=== PATIENT | male | born 1935 | race Caucasian/White ===

== ENCOUNTER 2020-02-21 17:50 | Emergency (ER) | payer OTHER ==
[~2020-02-21] VITALS: Ht 170.2 cm; Wt 83.2 kg
[~2020-02-21 17:50] MED LIST: LIDOcaine 1% W/epiNEPHrine 1:200,000 10ml vial ONE
[2020-02-21] MEDS ORDERED: LIDOcaine 1% W/epiNEPHrine 1:200,000 10ml vial IJ ONE (20:15)
[2020-02-21] MEDS ORDERED: LIDOcaine 1% w/epiNEPHrine 1:200,000 30ml vial IJ ONE (20:20)
[2020-02-21] MEDS ORDERED: TETanus/Pertussis (Acell)/Diphther VAC/PF (Tdap-Adult) 0.5ml syringe IMVAC ONE (20:45)
[2020-02-21 21:12] VITALS: BP 168/95
== END 2020-02-21 21:13 | disposition home or self-care (01) ==
LOC: ER 17:50
DX: S01.111A Laceration without foreign body of right eyelid and periocular area, initial encounter (principal); S60.511A Abrasion of right hand, initial encounter; W01.0XXA Fall on same level from slipping, tripping and stumbling without subsequent striking against object, initial encounter; Y93.89 Activity, other specified; Y92.89 Other specified places as the place of occurrence of the external cause; Y99.8 Other external cause status
CPT/HCPCS: 12013; 70450; 71250; 72125; 90471; 90715; 99285

== ENCOUNTER 2020-02-27 06:26 | Emergency (ER) | payer SELFPAY ==
[~2020-02-27] VITALS: Ht 170.2 cm; Wt 83.2 kg
[2020-02-27 06:30] VITALS: BP 158/63
== END 2020-02-27 07:13 | disposition home or self-care (01) ==
LOC: ER 06:26
DX: S01.81XD Laceration without foreign body of other part of head, subsequent encounter (principal); X58.XXXD Exposure to other specified factors, subsequent encounter
CPT/HCPCS: 99281

== ENCOUNTER 2021-01-19 18:30 | Emergency (ER) | payer OTHER, MEDICARE ==
[~2021-01-19] VITALS: Ht 170.2 cm; Wt 81.5 kg
[~2021-01-19 18:30] MED LIST changes: +AMLO1CAP19 PO; +ASPI-1071 PO; +ATOR20TA66 PO; +CYAN500T71 PO; -LIDOcaine 1% W/epiNEPHrine 1:200,000 10ml vial ONE
[2021-01-19 19:11] VITALS: BP 177/84
== END 2021-01-19 21:38 | disposition home or self-care (01) ==
LOC: ER 18:31
DX: R11.2 Nausea with vomiting, unspecified (principal); R42 Dizziness and giddiness; I10 Essential (primary) hypertension; Z79.82 Long term (current) use of aspirin; Z79.899 Other long term (current) drug therapy; Z98.2 Presence of cerebrospinal fluid drainage device
CPT/HCPCS: 70450; 99284

== ENCOUNTER 2021-11-15 18:22 | Emergency (ER) | payer OTHER, MEDICARE ==
[~2021-11-15] VITALS: Ht 170.2 cm; Wt 84.5 kg
[~2021-11-15 18:22] MED LIST changes: -AMLO1CAP19 PO; +AMLO1CAP77 PO
[2021-11-15 19:21] LABS: BASOPHILS # (AUTO) 0.1 X10'3 (0-0.2); EOSINOPHILS # (AUTO) 0.4 X10'3 (0-0.9); EOSINOPHILS % (AUTO) 7.6 % (0-6); HEMATOCRIT 44.2 % (42.0-52.0); HEMOGLOBIN 14.8 g/dl (14.0-17.9); LYMPHOCYTES # (AUTO) 1.7 X10'3 (1.1-4.8); LYMPHOCYTES % (AUTO) 33.1 % (21-51); MEAN CORPUSCULAR HEMOGLOBIN 31.6 PG (27.0-31.0); MEAN CORPUSCULAR HGB CONC 33.4 g/dL (33.0-36.5); MEAN CORPUSCULAR VOLUME 94.6 FL (78-98); MEAN PLATELET VOLUME 9.2 FL (7.4-10.4); MONOCYTES # (AUTO) 0.4 X10'3 (0-0.9); MONOCYTES % (AUTO) 7.9 % (2-12); NEUTROPHILS # (AUTO) 2.6 X10'3 (1.8-7.7); NEUTROPHILS % (AUTO) 50.4 % (42-75); PLATELET COUNT 163 X10'3 (140-440); RED BLOOD COUNT 4.68 X10'6 (4.70-6.10); RED CELL DISTRIBUTION WIDTH 14.9 % (11.5-14.5); WHITE BLOOD COUNT 5.3 X10'3 (4.5-11.0)
[2021-11-15 19:43] LABS: ALANINE AMINOTRANSFERASE 17 U/L (12-78); ALBUMIN 3.5 G/DL (3.4-5.0); ALBUMIN/GLOBULIN RATIO 1.1 (1.1-1.5); ALKALINE PHOSPHATASE 116 IU/L (46-116); ANION GAP 9 (8-16); ASPARTATE AMINO TRANSFERASE 18 U/L (10-37); BILIRUBIN,TOTAL 0.6 MG/DL (0.1-1.0); BLOOD UREA NITROGEN 18 MG/DL (7-18); BUN/CREATININE RATIO 13.6 (5.4-32.0); CALCIUM 8.7 MG/DL (8.5-10.1); CHLORIDE 111 MMOL/L (99-107); CREATININE 1.32 MG/DL (0.60-1.10); GLUCOSE 131 MG/DL (70-104); POTASSIUM 3.7 MMOL/L (3.5-5.1); SODIUM 142 MMOL/L (135-145); TOTAL CARBON DIOXIDE 21.7 MMOL/L (24-32); TOTAL PROTEIN 6.8 G/DL (6.4-8.2); eGFR 52 ML/MIN
[2021-11-15] MEDS ORDERED: CEPH-585 PO (21:42)
[2021-11-15] MEDS ORDERED: cephalexin 250mg capsule PO ONE (21:45)
[2021-11-15] MEDS ORDERED: FURO20TA4 PO (21:49)
[2021-11-15 22:42] VITALS: BP 136/70
== END 2021-11-15 22:08 | disposition home or self-care (01) ==
LOC: ER 18:23
DX: L03.115 Cellulitis of right lower limb (principal); R22.42 Localized swelling, mass and lump, left lower limb; I10 Essential (primary) hypertension; Z85.9 Personal history of malignant neoplasm, unspecified; Z90.49 Acquired absence of other specified parts of digestive tract; Z85.46 Personal history of malignant neoplasm of prostate; Z79.82 Long term (current) use of aspirin; Z79.899 Other long term (current) drug therapy
CPT/HCPCS: 36415; 80053; 83880; 85025; 93971; 99284